=== PATIENT | male | born 1990 | race Caucasian/White ===

== ENCOUNTER 2017-07-21 03:48 | Emergency (ER) | payer SELFPAY ==
[~2017-07-21] VITALS: Ht 165.1 cm; Wt 86.2 kg
[2017-07-21 03:52] VITALS: BP 153/101
[2017-07-21 04:30] LABS: HEMATOCRIT 44.4 % (36-52); HEMOGLOBIN 14.7 g/dL (12.0-18.0); MEAN CORPUSCULAR HEMOGLOBIN 29 pg (27-31); MEAN CORPUSCULAR HGB CONC 33 g/dL (33-37); MEAN CORPUSCULAR VOLUME 89 fL (80-94); PLATELET COUNT (AUTO) 225 K/uL (140-450); RED BLOOD CELL COUNT(AUTO) 5.01 MIL/uL (4.20-6.10); RED CELL DISTRIBUTION WIDTH 11.8 % (11.6-13.7); WHITE BLOOD COUNT (AUTO) 12.8 K/uL (4.8-10.8)
[2017-07-21 04:44] LABS: ANION GAP 9.3 (8-16); CARBON DIOXIDE 30.2 mmol/L (21-32); CREATININE 1.1 mg/dL (0.7-1.3); POTASSIUM 3.5 mmol/L (3.5-5.1)
[2017-07-21 04:48] LABS: EOSINOPHILS % (MANUAL) 1 % (0-4); LYMPHOCYTES % (MANUAL) 17 % (20-46); MONOCYTES % (MANUAL) 3 % (5-12)
[2017-07-21 04:50] LABS: ALBUMIN 4.1 g/dL (3.4-5.0); TOTAL BILIRUBIN 0.3 mg/dL (0.0-1.0)
--- NOTE | 2017-07-21 05:04 | NUR ---
PT TAKEN TO BED 12
[2017-07-21] MEDS ORDERED: DICYCLOMINE HCL LIQUID 20 MG, ALUMINUM HYD/MAG/SIMETHICONE 30 ML, LIDOCAINE VISCOUS 2% ... PO ONE ×3 (05:45)
--- NOTE | 2017-07-21 05:52 | NUR ---
Dr. Smart evaluating patient at bedside.
--- NOTE | 2017-07-21 05:55 | NUR ---
27/M PRESENTS TO THE ER C/O EPIGASTRIC PAIN, N/V SINCE 99. PT DENIES PMH. PT STATES PAIN STARTED AFTER HE TRIED A NEW FAST FOOD PLACE, VOMIT X4, DENIES DIARRHEA. ABDOMEN IS SOFT NON TENDER, ACTIVE BOWEL SOUNDS X4. BL LUNGS CLEAR THROUGHOUT. PT DENIES FEVER OR TAKING ANY MEDS. PT IN BED, MADE COMFORTABLE, ER MD NOTIFIED OF PT STATUS.
[2017-07-21 06:45] VITALS: BP 153/101
--- NOTE | 2017-07-21 06:46 | NUR ---
Patient discharged with v/s stable. Written and verbal after care instructions given and explained. Patient alert, oriented and verbalized understanding of instructions. Ambulatory with steady gait. All questions addressed prior to discharge. ID band removed. Patient advised to follow up with PMD. Rx of PRILOSEC 40MG, MOTRIN 800MG, ZOFRAN 8MG given. Patient educated on indication of medication including possible reaction and side effects. Opportunity to ask questions provided and answered.
== END 2017-07-21 06:46 | disposition home or self-care (01) ==
LOC: MED 03:48
DX: R10.13 Epigastric pain (principal); R11.2 Nausea with vomiting, unspecified; J45.909 Unspecified asthma, uncomplicated
CPT/HCPCS: 36415; 80053; 81002; 83690; 85025; 99284